=== PATIENT | male | born 1995 | race Caucasian/White ===

== ENCOUNTER → 2020-07-06 | Outpatient (CLI) | payer MEDICAID ==
--- NOTE | 2020-07-06 11:50 | ECHOF ---
Referral Reason:R00.2 palpitations R07.9 chest pain MEASUREMENTS -------- HEIGHT: 157.5 cm WEIGHT: 111.1 kg BP: RVIDd: 2.9 cm (< 3.3) IVSd: 1.1 cm (0.6 - 1.1) LVIDd: 4.9 cm (3.9 - 5.3) LVPWd: 1.2 cm (0.6 - 1.1) IVSs: 1.5 cm LVIDs: 3.4 cm LVPWs: 1.6 cm LA Diam: 3.8 cm (2.7 - 3.8) LAESV Index (A-L): 22.22 ml/m Ao Diam: 3.2 cm (2.0 - 3.7) AV Cusp: 2.0 cm (1.5 - 2.6) LA Diam: 3.7 cm (2.7 - 3.8) MV EXCURSION: 17.297 mm (> 18.000) MV EF SLOPE: 86 mm/s (70 - 150) EPSS: 0.7 cm MV E Arron: 0.85 m/s MV DecT: 165 ms MV A Arron: 0.46 m/s MV E/A Ratio: 1.85 RAP: 5.00 mmHg RVSP: 9.98 mmHg FINDINGS -------- Sinus rhythm. This was a technically good study. LV size, wall thickness and systolic function are normal, with an EF greater than 55%. The left jojo tricular size is normal. The right ventricle is normal in size. Normal LA size by volume 22+/-6 ml/m2. The right atrial size is normal. The aortic valve is trileaflet, and appears structurally normal. No aortic stenosis or regurgitation. Mild mitral regurgitation is present. Mild tricuspid regurgitation present. Right ventricular systolic pressure is normal at < 35 mmHg. There is no pulmonic regurgitation present. The aortic root size is normal. There is no pericardial effusion. CONCLUSIONS -------- 1. LV size, wall thickness and systolic function are normal, with an EF greater than 55%. 2. The left ventricular size is normal. 3. The right ventricle is normal in size. 4. Normal LA size by volume 22+/-6 ml/m2. 5. The right atrial size is normal. 6. Mild mitral regurgitation is present. 7. Mild tricuspid regurgitation present. 8. The aortic root size is normal. 9. There is no pericardial effusion. GEOGRAPHIC INFORMATION SYSTEM ANALYST: Fang Watts RDCS
--- NOTE | 2020-07-06 12:23 | EST ---
EXERCISE STRESS AGE: 25 SEX: Male HT: 6''3" WT: 244 lbs. PROTOCOL: Jaret. STAGE: 4 DURATION OF EXERCISE: 12 minutes HEART RATE REST: 69 BLOOD PRESSURE REST: 143/57 MAXIMUM HEART RATE ACHIEVED: 167 MAXIMUM BLOOD PRESSURE: 188/66 85% MPHR: 165 100% MPHR: 194 METS: 12.1 INDICATIONS: Chest pain, palpitations CLINICAL INFORMATION: A 25-year-old male patient with chest discomfort and palpitations. Baseline heart rate 69 beats per minute. Baseline blood pressure 143/57 mmHg. A 12- lead EKG at baseline shows sinus rhythm with normal cardiac intervals, normal ST segments. Patient exercised on a Jaret protocol for 12 minutes achieving a peak heart rate of 167 beats per minute. Normal blood pressure response to exercise. Occasional PVCs were noted. There was no ECG evidence for ischemia. No sustained or nonsustained arrhythmias noted. IMPRESSION: Good exercise capacity. Occasional PVCs. No ECG evidence for ischemia. MMODL / IJN: [id number] /
== END | disposition home or self-care (01) ==
LOC: RADNMMAIN 08:22
PROVIDERS: ATTEND Family Medicine
DX: I08.1 Rheumatic disorders of both mitral and tricuspid valves (principal); R07.9 Chest pain, unspecified
CPT/HCPCS: 93017; 93306

== ENCOUNTER → 2024-04-09 | Outpatient (CLI) | payer BC ==
--- NOTE | 2024-04-09 12:47 | XR ---
EXAMINATION TYPE: XR ankle complete RT DATE OF EXAM: 04/09/2024 12:32 PM COMPARISON: None. CLINICAL INDICATION: Male, 29 years old with history of M19.079 PRIMARY OSTEOARTHRITIS, UNSPECIFIED A NKLE, TECHNIQUE: XR ankle complete RT, views submitted for evaluation. FINDINGS: There is no evidence for fracture or dislocation. Postop screw fixation medial malleolus. The joint s paces appear within normal limits. The overlying soft tissue appears unremarkable. Ankle mortise is intact. Soft tissues are within normal limits. IMPRESSION: 1. No evidence for acute fracture. [facility], , 04/09/2024 12:45 PM
--- NOTE | 2024-04-09 12:48 | XR ---
EXAMINATION TYPE: XR foot complete RT DATE OF EXAM: 04/09/2024 12:32 PM COMPARISON: None. CLINICAL INDICATION: Male, 29 years old with history of M19.079 PRIMARY OSTEOARTHRITIS, UNSPECIFIED A NKLE, pain TECHNIQUE: XR foot complete RT XX views were obtained. FINDINGS: There is no acute fracture/dislocation evident. Mild degenerative narrowing first metatarsophalangeal joint. The overlying soft tissue appears unremarkable. IMPRESSION: No acute fracture or dislocation. [facility], , 04/09/2024 12:46 PM
== END | disposition home or self-care (01) ==
LOC: RADXRMAIN 12:12
PROVIDERS: ATTEND Family Medicine
DX: M19.071 Primary osteoarthritis, right ankle and foot (principal)